=== PATIENT | female | born 1975 | race Caucasian/White ===

== ENCOUNTER 2018-04-10 18:13 | Emergency (ER) | payer BC ==
[2018-04-10 18:31] VITALS: BP 145/90
--- NOTE | 2018-04-10 18:42 | UC ---
Ear Complaint HPI - HPI Summary HPI Summary: right ear pain and throat pain for 3 days--no fevers - History of Current Complaint Chief Complaint: UCGeneralIllness Stated Complaint: ST/RT EAR PAIN Time Seen by Provider: 04/10/18 18:34 Hx Obtained From: Patient Hx Last Menstrual Period: 11/28/13 ?: No Onset/Duration: Sudden Onset, Lasting Days - 3 Pain Intensity: 4 Pain Scale Used: 0-10 Numeric Aggravating Factors: Nothing Alleviating Factors: Nothing - Allergies/Home Medications Allergies/Adverse Reactions: Allergies Allergy/AdvReac Type Severity Reaction Status Date / Time Iodinated Contrast- Oral and Allergy Intermediate Rash Verified 04/10/18 18:31 IV Dye Home Medications: Home Medications prednisoLONE 1% OPHTH.SUSP* [Pred Forte 1%*] 1 drop .SEE ORDER DAILY 04/10/18 [ History Confirmed 04/10/18] PMH/Surg Hx/FS Hx/Imm Hx Previously Healthy: Yes - Surgical History Surgical History: Yes Surgery Procedure, Year, and Place: ex lap 2006. choly- 11/30/13. Corneal transplant x2, 2016 2018 - Social History Occupation: Employed Full-time Lives: With Family Alcohol Use: None Substance Use Type: None Smoking Status (MU): Former Smoker When Did the Patient Quit Smoking/Using Tobacco: 2000 - Immunization History Most Recent Influenza Vaccination: 02/18/13 Most Recent Tetanus Shot: 06/13/13 Most Recent Pneumonia Vaccination: none Review of Systems All Other Systems Reviewed And Are Negative: Yes Constitutional: Positive: Negative Skin: Positive: Negative Eyes: Positive: Negative ENT: Positive: Sore Throat - right side, Ear Ache - right side Respiratory: Positive: Negative Cardiovascular: Positive: Negative Gastrointestinal: Positive: Negative Genitourinary: Positive: Negative Motor: Positive: Negative Neurovascular: Positive: Negative Musculoskeletal: Positive: Negative Neurological: Positive: Negative Psychological: Positive: Negative Is Patient Immunocompromised?: No Physical Exam Triage Information Reviewed: Yes Appearance: Well-Appearing, No Pain Distress, Well-Nourished Vital Signs: Initial Vital Signs Temp 97.4 F 04/10/18 18:27 Pulse 86 04/10/18 18:27 Resp 16 04/10/18 18:27 BP 145/90 04/10/18 18:27 Pulse Ox 100 04/10/18 18:27 Vital Signs Reviewed: Yes Eye Exam: Normal Eyes: Positive: Conjunctiva Clear ENT Exam: Normal ENT: Positive: Normal ENT inspection, Hearing grossly normal, Pharynx normal, TMs normal, Uvula midline. Negative: Nasal congestion, Tonsillar swelling, Tonsillar exudate, Trismus, Muffled voice, Hoarse voice, Dental tenderness, Sinus tenderness Dental Exam: Normal Neck exam: Normal Neck: Positive: Supple, Nontender Respiratory Exam: Normal Respiratory: Positive: Chest non-tender, Lungs clear, Normal breath sounds, No respiratory distress, No accessory muscle use Cardiovascular Exam: Normal Cardiovascular: Positive: RRR, No Murmur, Pulses Normal, Brisk Capillary Refill Musculoskeletal Exam: Normal Musculoskeletal: Positive: Strength Intact, ROM Intact, No Edema Neurological Exam: Normal Neurological: Positive: Alert, Muscle Tone Normal Psychological Exam: Normal Skin Exam: Normal Ear Complaint Course/Dx - Course Course Of Treatment: patient will use sudafed mucinex and tylenol/ibuprofen, if fails to resolve or worsen in the next 3 days may start antibiodic follow blood pressure with pcp - Differential Dx/Diagnosis Provider Diagnosis: Acute dysfunction of right eustachian tube Discharge - Sign-Out/Discharge Documenting (check all that apply): Patient Departure All imaging exams completed and their final reports reviewed: No Studies - Discharge Plan Condition: Stable Disposition: HOME Prescriptions: Amoxicillin PO (*) [Amoxicillin 875 MG (*)] 875 mg PO BID #20 tab Patient Education Materials: Ibuprofen (By mouth), Antitussive/Decongestant ( By mouth), Earache (ED), Viral Syndrome (ED), Hypertension (ED) Referrals: Shanti Ansari MD [Primary Care Provider] - 1 Week - Billing Disposition and Condition Condition: STABLE Disposition: Home
== END 2018-04-10 18:48 | disposition home or self-care (01) ==
LOC: UCCORT 18:13
DX: H69.81 Other specified disorders of Eustachian tube, right ear (principal); Z91.041 Radiographic dye allergy status; Z87.891 Personal history of nicotine dependence
CPT/HCPCS: 99212; G0463